=== PATIENT | female | born 1985 | race Caucasian/White ===

== ENCOUNTER 2017-05-28 23:37 | Emergency (ER) | payer SELFPAY ==
[2017-05-29 00:16] VITALS: BP 127/86; TEMP 98.5; O2SAT 95
--- NOTE | 2017-05-29 00:32 | ED.PDOC ---
History of Present Illness - General Chief Complaint: Dental/Mouth Stated Complaint: toothache Time Seen by Provider: 05/29/17 00:26 Source: patient Exam Limitations: no limitations Additional Information: PT C/O PAIN TO R FACE AND MOUTH. ONSET TODAY. - History of Present Illness Timing/Duration: this morning Severity: moderate Prearrival Treatment: over the counter meds Improving Factors: nothing Worsening Factors: nothing Allergies/Adverse Reactions: Allergies Ketorolac Tromethamine [From Toradol] Allergy (Verified 05/29/17 00:05) Penicillin G Allergy (Verified 05/29/17 00:05) Home Medications: Ambulatory Orders Acetaminophen W/ Codeine [Tylenol W/ CODEINE #3] 1 ea PO Q6HR PRN #24 05/29/17 Cephalexin Monohydrate [Keflex] 500 mg PO TID #30 cap 05/29/17 Review of Systems - Review of Systems Constitutional: Denies: chills, fever EENTM: States: ear pain. Denies: throat pain Gastrointestinal/Abdominal: Denies: nausea, vomiting Skin: States: no symptoms reported Past Medical History (General) - Patient Medical History Hx Seizures: No Hx Stroke: No Hx Dementia: No Hx Asthma: No Hx of COPD: No Hx Cardiac Disorders: No Hx Congestive Heart Failure: No Hx Pacemaker: No Hx Hypertension: No Hx Thyroid Disease: No Hx Diabetes: No Hx Gastroesophageal Reflux: No Hx Renal Disease: No Hx Cancer: No Hx of HIV: No Hx Hepatitis C: No Hx MRSA: No Surgical History: other - Vaccination History Hx Tetanus, Diphtheria Vaccination: No Hx Influenza Vaccination: No Hx Pneumococcal Vaccination: No - Social History Hx Tobacco Use: Yes Hx Alcohol Use: No Hx Substance Use: No Hx Substance Use Treatment: No Hx Depression: No - Female History Patient is a Female of Child Bearing Age (10 -59 yrs old): Yes Patient : No - Triage Comment ED Triage Comment: Presents to ED--c/o toothache to RT bottom jaw since 1930 -- traveling thru town and stopped to be checked. Family Medical History - Family History Mother Family History: Unknown Physical Exam - Physical Exam General Appearance: Alert, No apparent distress, Obese, Other - MILD DISTRESS DTP Eye Exam: bilateral normal Ear Exam: bilateral ear: TM normal Throat Exam: pharynx normal, other - R LOWER MOLAR WITH SEVERE DENTAL SHREYAS, GINGIVAL SWELLING Neck: non-tender, supple Neurologic: normal mood/affect, oriented x 3 Skin Exam: normal color, warm/dry Departure - Departure Clinical Impression: Facial pain, Dental caries, Gingivitis Time of Disposition: 00:34 Disposition: Discharge to Home or Self Care Condition: Good Departure Forms: ED Discharge - Pt. Copy, Patient Portal Self Enrollment Instructions: DI for Dental Pain Prescriptions: Acetaminophen W/ Codeine [Tylenol W/ CODEINE #3] 1 ea PO Q6HR PRN #24 PRN Reason: Pain Cephalexin Monohydrate [Keflex] 500 mg PO TID #30 cap Home Medications: Ambulatory Orders Acetaminophen W/ Codeine [Tylenol W/ CODEINE #3] 1 ea PO Q6HR PRN #24 05/29/17 Cephalexin Monohydrate [Keflex] 500 mg PO TID #30 cap 05/29/17
[2017-05-29] MEDS ORDERED: traMADol HCL 50 MG TAB ONE (00:38)
[2017-05-29] MEDS ORDERED: traMADol HCL 50 MG TAB PO ONE (00:38)
== END 2017-05-29 00:47 | disposition home or self-care (01) ==
LOC: ER 23:37
DX: K02.9 Dental caries, unspecified (principal); K05.10 Chronic gingivitis, plaque induced; R51 Headache; Z87.891 Personal history of nicotine dependence; Z88.0 Allergy status to penicillin; Z88.6 Allergy status to analgesic agent